=== PATIENT | male | born 1955 | race American Indian/Alaskan Native ===

== ENCOUNTER 2020-05-05 06:02 | Day surgery (SDC) | payer MEDICARE, OTHER ==
[2020-05-05] MEDS ORDERED: ASPIRIN EC 325 MG TAB PO ONE (07:06)
[2020-05-05 07:55] LABS: INR 1.11 (0.87-1.13)
[2020-05-05 07:56] LABS: Eosinophils # (Auto) 0.1 K/mm3 (0.0-0.4); Eosinophils % (Auto) 2.1 % (0.0-4.3); Hematocrit 27.7 % (35.5-45.6); Hemoglobin 9.5 gm/dl (11.8-15.2); Lymphocytes # (Auto) 1.3 K/mm3 (1.2-5.4); Lymphocytes % (Auto) 39.8 % (13.4-35.0); Mean Corpuscular HGB Conc 35 % (32-34); Mean Corpuscular Volume 95 fl (84-94); Monocytes # (Auto) 0.3 K/mm3 (0.0-0.8); Monocytes % (Auto) 9.8 % (0.0-7.3); Platelet Count 121 K/mm3 (140-440); Red Blood Count 2.91 M/mm3 (3.65-5.03)
[2020-05-05] MEDS ORDERED: SODIUM CHLORIDE 0.9% 500 ML 500 ML IV SCH (08:00)
[2020-05-05 08:03] LABS: Hemolysis Index 218
[2020-05-05 08:11] LABS: BUN/Creatinine Ratio TNR; Blood Urea Nitrogen TNR mg/dL (9-20)
[2020-05-05 08:12] LABS: Calcium TNR mg/dL (8.4-10.2)
[2020-05-05] MEDS ORDERED: MIDAZOLAM 2 MG/2 ML INJ ONE (08:18)
[2020-05-05] MEDS ORDERED: LIDOCAINE (2%) 20 MG/1 ML VIAL 20 ML MDV INFILTRATI ONE (08:18)
[2020-05-05] MEDS ORDERED: HEPARIN/NS 5000 UNIT/500ML 1,000 ML IR ONE (08:18)
[2020-05-05] MEDS ORDERED: fentaNYL 100 MCG/2 ML INJ ONE (08:18)
[2020-05-05 08:38] LABS: Calcium 9.3 mg/dL (8.4-10.2)
[2020-05-05] MEDS ORDERED: LIDOCAINE (1%) 10 MG/1 ML VIAL 20 ML MDV ONE (09:09)
[2020-05-05] MEDS ORDERED: traMADol 50 MG TAB PO PRN (10:55)
[2020-05-05] MEDS ORDERED: HYDROcodone/ACETAMINOPHEN 5-325 MG TAB PO PRN (10:55)
--- NOTE | 2020-05-05 10:57 | Discharge Summary ---
Short Stay Discharge Plan Activity: advance as tolerated Diet: low fat, low cholesterol, low salt Additional Instructions: I SAWT HIS PT & AGREE WITH THE Dx & Tx PLAN. Follow up with: NICHELLE TIAN [Other] - 7 Days Forms: [facility] PCI D/C Instructions
[2020-05-05 13:01] VITALS: BP 113/55
--- NOTE | 2020-05-05 13:27 | Cardiac Catherization Report ---
HISTORY: The patient is a 65-year-old male who underwent a stress test that was abnormal and he has been experiencing shortness of breath. He has also been noted to have second-degree AV block. Coronary angiography was recommended. SEDATION: Intravenous Versed and fentanyl. COMPLICATIONS: None. PREPROCEDURE DIAGNOSES: Coronary artery disease with shortness of breath, possible angina equivalent. POSTPROCEDURE DIAGNOSES: Coronary artery disease with shortness of breath, possible angina equivalent, with 2-vessel coronary artery disease. ESTIMATED BLOOD LOSS: 5-10 mL. TISSUE SAMPLES: None. PROCEDURE: Left heart catheterization, ventriculography and coronary angiography via the right femoral artery using 5-E[place]ian Alfredo catheters and a pigtail catheter. A 5-Egyptian temporary pacemaker was also placed via the right femoral vein and positioned under fluoroscopy. The reason for this was because of bradycardia and second-degree AV block. This was placed to protect the patient during the procedure. HEMODYNAMICS: Central aortic pressure 135/67, left ventricular pressure 134/26. ANGIOGRAPHIC RESULTS: 1. Left ventricle: The ventriculogram reveals a normal sized left ventricle with normal systolic function. Ejection fraction is 60%-65%. On this study, you could see that the aortic root is minimally dilated. 2. Right coronary artery: This is the dominant vessel and it is diffusely irregular with scattered calcifications. There is a mid-50% stenosis, and shortly thereafter is a 60% stenosis. 3. Left coronary artery: This vessel is diffusely irregular and calcified. The distal left main tapers and there appears to be a 20% distal left main stenosis. The LAD is diffusely irregular and narrowed and there is a mid-50% stenosis. There are two large diagonal branches that are irregular. The circumflex contains an ostial 75% stenosis followed by diffuse irregularities. SEDATION TIME: 9:01 a.m. START TIME: 9:05 a.m. END TIME: 9:27 a.m. IMPRESSION: 1. Coronary artery disease with shortness of breath. There is a 75% stenosis in the ostium of the circumflex and a 60% stenosis in the midportion of the right coronary artery. Left ventricular function is normal. The results were discussed with Dr. Polanco, who knows the patient and has reviewed the stress test result. The patient will be treated medically at this time. The results were discussed with the patient and he was told to carry nitroglycerin. 2. Bradycardia with second-degree atrioventricular block: The patient has been experiencing shortness of breath. A temporary pacemaker was placed during the procedure as a precaution to prevent marked bradyarrhythmias. PLAN: The patient will be seen in electrophysiology on an outpatient basis soon. JOB# [id number] JAE/NTS
== END 2020-05-05 13:56 | disposition home or self-care (01) ==
LOC: CATHLABREC 06:02
PROVIDERS: ATTEND Internal Medicine
DX: R06.02 Shortness of breath (principal); R94.39 Abnormal result of other cardiovascular function study; I25.10 Atherosclerotic heart disease of native coronary artery without angina pectoris; I44.1 Atrioventricular block, second degree; R00.1 Bradycardia, unspecified; E78.00 Pure hypercholesterolemia, unspecified; I10 Essential (primary) hypertension; G47.30 Sleep apnea, unspecified; M19.90 Unspecified osteoarthritis, unspecified site; Z88.8 Allergy status to other drugs, medicaments and biological substances; Z79.82 Long term (current) use of aspirin; Z79.899 Other long term (current) drug therapy; Z87.891 Personal history of nicotine dependence; Z98.890 Other specified postprocedural states
CPT/HCPCS: 33210; 36415; 80048; 85025; 85610; 85730; 93005; 93458; C1894; J1644; J2250; J3010; J7040; Q9967